=== PATIENT | male | born 1990 | race Caucasian/White ===

== ENCOUNTER 2020-08-05 19:25 | Inpatient (IN) | payer OTHER ==
[~2020-08-05] VITALS: Ht 170.2 cm; Wt 86.4 kg
[2020-08-05] MEDS ORDERED: ACETAMINOPHEN 325 MG TABLET PO PRN (21:00)
[2020-08-05 21:16] LABS: BASOPHILS % (AUTO) 0.6 % (0.0-2.0); EOSINOPHILS % (AUTO) 0.6 % (1.0-6.0); HEMATOCRIT 43.5 % (41-53); LYMPHOCYTES # (AUTO) 2.2 K/uL (1.0-4.8); LYMPHOCYTES % (AUTO) 27.5 % (22.0-44.0); MEAN CORPUSCULAR HEMOGLOBIN 30.6 pg (26.0-34.0); MEAN CORPUSCULAR HGB CONC 34.5 G/dL (31.0-37.0); MEAN CORPUSCULAR VOLUME 89 fL (80-100); MONOCYTES # (AUTO) 0.6 K/uL (0.1-1.0); MONOCYTES % (AUTO) 7.7 % (2.0-9.0); NEUTROPHILS # (AUTO) 5.2 K/uL (1.8-7.7); NEUTROPHILS % (AUTO) 63.6 % (40.0-70.0); PLATELET COUNT (AUTO) 218 K/uL (150-450); RED CELL DISTRIBUTION WIDTH 13.1 % (11.5-14.5)
[2020-08-05 21:26] LABS: COVID AG,FIA SOURCE NASOPHARYNGEAL
[2020-08-05 21:30] LABS: ANION GAP 8 mmol/L (8-16); CALCIUM, TOTAL 9.1 mg/dL (8.8-10.5); CARBON DIOXIDE 29 mmol/L (22-29); CHLORIDE 102 mmol/L (98-107); CREATININE 1.04 mg/dL (0.60-1.30); GLOMERULAR FILTR. RATE CALC > 60 mL/min (>60); GLUCOSE,RANDOM 104 mg/dL (70-110); SODIUM SERUM 139 mmol/L (136-145); UREA NITROGEN, BLOOD 15 mg/dL (7-18)
[2020-08-05 21:45] LABS: ALANINE AMINOTRANSFERASE 21 U/L (12-78); ALBUMIN 4.3 g/dL (3.4-5.0); ALKALINE PHOSPHATASE 109 U/L (46-116); ASPARTATE AMINOTRANSFERASE 13 U/L (15-37); BILIRUBIN,TOTAL 0.8 mg/dL (0.1-1.0); CHOL/HDL RATIO 4.4 (4.2-7.3); CHOLESTEROL 177 mg/dL (131-200); FREE T4 (FREE THYROXINE) 1.19 ng/dL (0.76-1.46); HDL CHOLESTEROL 40 mg/dL (40-60); LDL CHOL (CALC.) 117 mg/dL (0-130); THYROID STIMULATING HORMONE 0.42 uIU/mL (0.36-3.74); TOTAL PROTEIN, SERUM 7.4 g/dL (6.4-8.2); TRIGLYCERIDES 100 mg/dL (15-150)
[2020-08-05 22:10] VITALS: BP 111/63
[2020-08-06 06:05] VITALS: BP 105/62
[2020-08-06 07:48] VITALS: BP 102/61
[2020-08-06] MEDS ORDERED: BISACODYL 10 MG RECTAL RECTAL SUPPOSITORY PR PRN (13:00)
[2020-08-06] MEDS ORDERED: MAGNESIUM HYDROXIDE SUSPENSION 30 ML UDCUP PO PRN (13:00)
[2020-08-06] MEDS ORDERED: ACETAMINOPHEN 325 MG TABLET PO PRN (13:00)
[2020-08-06] MEDS ORDERED: ALBUTEROL SULFATE 2.5 MG/0.5 ML NEB SOLUTION NEB PRN (13:00)
[2020-08-06] MEDS ORDERED: ZOLPIDEM TARTRATE 5 MG TABLET PO PRN (13:00)
[2020-08-06] MEDS ORDERED: ONDANSETRON HCL 4 MG/2 ML VIAL IVP PRN (13:00)
[2020-08-06] MEDS ORDERED: IPRATROPIUM BROMIDE 0.5 MG/2.5 ML NEB SOLUTION NEB PRN (13:00)
[2020-08-06] MEDS: HEPARIN SODIUM,PORCINE 5,000 UNITS/ML VIAL SQ SCH (15:15)
[2020-08-06 19:24] VITALS: BP 108/52
[2020-08-07 05:57] VITALS: BP 106/64
[2020-08-07 07:30] VITALS: BP 114/67
[2020-08-07] MEDS: HEPARIN SODIUM,PORCINE 5,000 UNITS/ML VIAL SQ SCH ×3 (08:45→16:00)
[2020-08-07 19:30] VITALS: BP 111/69
[2020-08-07] MEDS: OLANZapine 5 MG TABLET PO SCH (20:23)
[2020-08-08 04:40] VITALS: BP 111/72
[2020-08-08 07:46] VITALS: BP 131/69
[2020-08-08] MEDS: HEPARIN SODIUM,PORCINE 5,000 UNITS/ML VIAL SQ SCH ×3 (08:55→17:13)
[2020-08-08] MEDS: CITALOPRAM HYDROBROMIDE 20 MG TABLET PO SCH (08:56)
[2020-08-08] MEDS: RisperiDONE 1 MG TABLET PO SCH ×2 (08:56→19:56)
[2020-08-08 15:13] VITALS: BP 124/76
[2020-08-08] MEDS: OLANZapine 5 MG TABLET PO SCH (19:56)
[2020-08-08 20:00] VITALS: BP 102/76
[2020-08-09] MEDS: HEPARIN SODIUM,PORCINE 5,000 UNITS/ML VIAL SQ SCH ×4 (00:22→23:04)
[2020-08-09 04:40] VITALS: BP 99/53
[2020-08-09 07:55] VITALS: BP 117/83
[2020-08-09] MEDS: CITALOPRAM HYDROBROMIDE 20 MG TABLET PO SCH (08:53)
[2020-08-09] MEDS: RisperiDONE 1 MG TABLET PO SCH ×2 (08:53→20:03)
[2020-08-09 19:44] VITALS: BP 126/74
[2020-08-09] MEDS: OLANZapine 5 MG TABLET PO SCH (20:03)
[2020-08-10 07:54] VITALS: BP 104/55
[2020-08-10] MEDS: CITALOPRAM HYDROBROMIDE 20 MG TABLET PO SCH (08:11)
[2020-08-10] MEDS: HEPARIN SODIUM,PORCINE 5,000 UNITS/ML VIAL SQ SCH (08:11)
[2020-08-10] MEDS: RisperiDONE 1 MG TABLET PO SCH (08:11)
[2020-08-10] MEDS ORDERED: OLAN5TAB2 PO (14:11)
[2020-08-10] MEDS ORDERED: CITA-144 PO (14:11)
[2020-08-10] MEDS ORDERED: RISP1TAB27 PO (14:12)
== END 2020-08-10 18:10 | DRG 881 ==
LOC: EMS 19:25 → 6N 20:46 → 6S 08-08 19:05
PROVIDERS: ADMIT Hospitalist; ATTEND Hospitalist
DX: F32.9 Major depressive disorder, single episode, unspecified (principal); R45.851 Suicidal ideations; F17.210 Nicotine dependence, cigarettes, uncomplicated; Z88.0 Allergy status to penicillin; Z03.818 Encounter for observation for suspected exposure to other biological agents ruled out
CPT/HCPCS: 84439; 84443; 87426; G0480; J1644

== ENCOUNTER 2022-06-04 19:41 | Emergency (ER) | payer MEDICAID, OTHER ==
[~2022-06-04] VITALS: Ht 170.2 cm; Wt 81.8 kg
[~2022-06-04 19:41] MED LIST: CITA-144 PO; OLAN5TAB52 PO; RISP1TAB48 PO
[2022-06-04 19:59] VITALS: BP 127/70
== END 2022-06-04 21:04 | disposition left against medical advice (07) ==
LOC: EMS 19:52
DX: M79.641 Pain in right hand (principal); Z53.21 Procedure and treatment not carried out due to patient leaving prior to being seen by health care provider

== ENCOUNTER 2023-05-31 17:07 | Emergency (ER) | payer MEDICAID | END 2023-05-31 17:56 | disposition left against medical advice (07) | LOC: EMS 17:08 | DX: R07.89 Other chest pain (principal); Z53.21 Procedure and treatment not carried out due to patient leaving prior to being seen by health care provider | CPT/HCPCS: 93005; 99281; Z7502 ==

== ENCOUNTER 2023-09-15 13:02 | Emergency (ER) | payer MEDICAID ==
[~2023-09-15] VITALS: Ht 172.7 cm; Wt 78.0 kg
[2023-09-15] MEDS ORDERED: KETOROLAC TROMETHAMINE 30 MG/ML VIAL IVP ONE (13:15)
[2023-09-15] MEDS ORDERED: SODIUM CHLORIDE 0.9% 1,000 ML IV ONE (13:15)
[2023-09-15] MEDS ORDERED: LORazepam 2 MG/ML VIAL IVP ONE (13:15)
[2023-09-15 13:20] VITALS: TEMP 97.7
[2023-09-15 13:33] LABS: BASOPHILS % (AUTO) 0.5 % (0.0-2.0); EOSINOPHILS % (AUTO) 0 % (1.0-6.0); HEMOGLOBIN 15.4 g/dL (13.5-17.5); LYMPHOCYTES # (AUTO) 1.3 K/uL (1.0-4.8); MEAN CORPUSCULAR HEMOGLOBIN 31.7 pg (26.0-34.0); MEAN CORPUSCULAR HGB CONC 35.1 G/dL (31.0-37.0); MEAN CORPUSCULAR VOLUME 91 fL (80-100); MONOCYTES # (AUTO) 0.8 K/uL (0.1-1.0); MONOCYTES % (AUTO) 6.7 % (2.0-9.0); NEUTROPHILS # (AUTO) 9.3 K/uL (1.8-7.7); NEUTROPHILS % (AUTO) 81.8 % (40.0-70.0); PLATELET COUNT (AUTO) 227 K/uL (150-450); RED BLOOD CELL COUNT(AUTO) 4.86 MIL/uL (4.50-5.90); RED CELL DISTRIBUTION WIDTH 13.8 % (11.5-14.5); WHITE BLOOD COUNT (AUTO) 11.4 K/uL (4.5-11.0)
[2023-09-15 13:41] LABS: ANION GAP 13 mmol/L (8-16); CALCIUM, TOTAL 9.1 mg/dL (8.8-10.5); CARBON DIOXIDE 26 mmol/L (22-29); CHLORIDE 102 mmol/L (98-107); CREATININE 1.04 mg/dL (0.60-1.30); GLOMERULAR FILTR. RATE CALC > 60 mL/min (>60); GLUCOSE,RANDOM 116 mg/dL (70-110); POTASSIUM 3.7 mmol/L (3.5-5.1); SODIUM SERUM 141 mmol/L (136-145); UREA NITROGEN, BLOOD 9 mg/dL (7-18)
[2023-09-15 13:46] LABS: ALANINE AMINOTRANSFERASE 67 U/L (12-78); ALBUMIN 3.7 g/dL (3.4-5.0); ALKALINE PHOSPHATASE 101 U/L (46-116); ASPARTATE AMINOTRANSFERASE 40 U/L (15-37); BILIRUBIN,TOTAL 0.5 mg/dL (0.1-1.0); TOTAL PROTEIN, SERUM 7.7 g/dL (6.4-8.2)
[2023-09-15 13:48] LABS: TROPONIN I-HIGH SENSITIVITY 4 ng/L (<76)
[2023-09-15 14:23] LABS: ALCOHOL, BLOOD (SERUM) < 3 mg/dL (0-10)
[2023-09-15 17:10] VITALS: BP 138/81; PULSE 109; RESP 20
[2023-09-15] MEDS ORDERED: HYDR-4808 PO (17:36)
== END 2023-09-15 17:43 | disposition home or self-care (01) ==
LOC: EMS 13:03
DX: F41.9 Anxiety disorder, unspecified (principal); T43.655A Adverse effect of methamphetamines, initial encounter; F17.210 Nicotine dependence, cigarettes, uncomplicated; F14.90 Cocaine use, unspecified, uncomplicated; Z88.0 Allergy status to penicillin; Y92.89 Other specified places as the place of occurrence of the external cause
CPT/HCPCS: 99285; 96374; 71045; 96361; 96375; 80053; 84484; 85025; 36415; 93005; G0480; J1885; J2060; J7030

== ENCOUNTER 2023-12-13 17:00 | Emergency (ER) | payer MEDICAID, OTHER ==
[~2023-12-13] VITALS: Ht 167.6 cm; Wt 72.7 kg
[~2023-12-13 17:00] MED LIST changes: +HYDR-4808 PO
[2023-12-13] MEDS ORDERED: ZOLP-162 PO (17:14)
[2023-12-13] MEDS ORDERED: ADDE10 PO (17:14)
[2023-12-13] MEDS: PROPARACAINE HCL 0.5% 15 ML OPHTHALMIC SOLUTION OU ONE (17:52)
[2023-12-13] MEDS: FLUORESCEIN SODIUM 1 MG STRIP OU ONE (17:52)
[2023-12-13] MEDS ORDERED: MOXI3DRO25 OU (18:37)
[2023-12-13 18:52] VITALS: BP 160/73; PULSE 126; RESP 18; TEMP 98.2
== END 2023-12-13 19:25 | disposition home or self-care (01) ==
LOC: EMS 17:11
DX: H16.003 Unspecified corneal ulcer, bilateral (principal); F17.210 Nicotine dependence, cigarettes, uncomplicated; F15.90 Other stimulant use, unspecified, uncomplicated; F14.90 Cocaine use, unspecified, uncomplicated
CPT/HCPCS: 99283

== ENCOUNTER 2023-12-15 22:47 | Emergency (ER) | payer OTHER ==
[~2023-12-15] VITALS: Ht 170.2 cm; Wt 75.0 kg
[~2023-12-15 22:47] MED LIST changes: +ADDE10 PO; -CITA-144 PO; -HYDR-4808 PO; +MOXI3DRO25 OU; -OLAN5TAB52 PO; -RISP1TAB48 PO; +ZOLP-162 PO
[2023-12-15 22:53] VITALS: TEMP 98.6
[2023-12-15 22:56] VITALS: BP 128/88; PULSE 78; RESP 16
== END 2023-12-15 23:30 | disposition home or self-care (01) ==
LOC: EMS 22:54
DX: F10.129 Alcohol abuse with intoxication, unspecified (principal); F15.90 Other stimulant use, unspecified, uncomplicated; Z88.0 Allergy status to penicillin
CPT/HCPCS: 99283

== ENCOUNTER 2024-01-07 00:03 | Emergency (ER) | payer OTHER ==
[~2024-01-07] VITALS: Ht 165.1 cm; Wt 65.9 kg
[2024-01-07] MEDS ORDERED: [UNRECOGNIZED DRUG - CODE] PO (00:07)
[2024-01-07 00:13] VITALS: BP 121/72; PULSE 123; RESP 18; TEMP 98.1
== END 2024-01-07 02:53 | disposition left against medical advice (07) ==
LOC: EMS 00:05
DX: R07.89 Other chest pain (principal); R42 Dizziness and giddiness; Z53.21 Procedure and treatment not carried out due to patient leaving prior to being seen by health care provider
CPT/HCPCS: 93005; 99281; Z7502

== ENCOUNTER 2024-10-17 13:04 | Emergency (ER) | payer MEDICAID, OTHER ==
[~2024-10-17] VITALS: Ht 170.2 cm; Wt 71.8 kg
[~2024-10-17 13:04] MED LIST changes: -ADDE10 PO; -MOXI3DRO25 OU; -ZOLP-162 PO; +[UNRECOGNIZED DRUG - CODE] PO
[2024-10-17 13:13] VITALS: TEMP 98.4
[2024-10-17 15:26] LABS: BASOPHILS % (AUTO) 0.7 % (0.0-2.0); EOSINOPHILS % (AUTO) 0 % (1.0-6.0); HEMATOCRIT 43.6 % (41-53); LYMPHOCYTES % (AUTO) 9.8 % (22.0-44.0); MEAN CORPUSCULAR HEMOGLOBIN 31.3 pg (26.0-34.0); MEAN CORPUSCULAR HGB CONC 34.3 G/dL (31.0-37.0); MEAN CORPUSCULAR VOLUME 91 fL (80-100); MONOCYTES # (AUTO) 0.6 K/uL (0.1-1.0); MONOCYTES % (AUTO) 6.5 % (2.0-9.0); NEUTROPHILS # (AUTO) 8.2 K/uL (1.8-7.7); PLATELET COUNT (AUTO) 210 K/uL (150-450); RED BLOOD CELL COUNT(AUTO) 4.78 MIL/uL (4.50-5.90); RED CELL DISTRIBUTION WIDTH 12.9 % (11.5-14.5); WHITE BLOOD COUNT (AUTO) 9.9 K/uL (4.5-11.0)
[2024-10-17 15:44] LABS: ANION GAP 13 mmol/L (8-16); CALCIUM, TOTAL 8.9 mg/dL (8.8-10.5); CARBON DIOXIDE 27 mmol/L (22-29); CHLORIDE 99 mmol/L (98-107); CREATININE 0.74 mg/dL (0.60-1.30); GLOMERULAR FILTR. RATE CALC > 60 mL/min (>60); GLUCOSE,RANDOM 103 mg/dL (70-110); POTASSIUM 3.8 mmol/L (3.5-5.1); SODIUM SERUM 139 mmol/L (136-145); UREA NITROGEN, BLOOD 13 mg/dL (7-18)
[2024-10-17 15:50] LABS: ALCOHOL, BLOOD (SERUM) < 3 mg/dL (0-10)
[2024-10-17 16:07] LABS: CREATINE KINASE, TOTAL ONLY 227 U/L (39-308)
[2024-10-17] MEDS: SODIUM CHLORIDE 0.9% 1,000 ML IV ONE (16:10)
[2024-10-17 16:26] LABS: TROPONIN I-HIGH SENSITIVITY 6 ng/L (<76)
[2024-10-17 16:32] LABS: B-TYPE NATRIURETIC PEPTIDE < 5 pg/mL (0-100)
[2024-10-17 17:54] VITALS: BP 148/91; PULSE 99; RESP 18; O2SAT 96
== END 2024-10-17 18:16 | disposition home or self-care (01) ==
LOC: EMS 13:04
DX: F14.90 Cocaine use, unspecified, uncomplicated (principal); R07.89 Other chest pain; F10.20 Alcohol dependence, uncomplicated; F15.90 Other stimulant use, unspecified, uncomplicated; Z88.0 Allergy status to penicillin
CPT/HCPCS: 99285; 96360; 71045; 80048; 82550; 83880; 84484; 85025; 93005; G0480; J7030; 36415-L1; 36415-TC